=== PATIENT | female | born 1980 | race Caucasian/White ===

== ENCOUNTER → 2019-03-04 | Outpatient (CLI) | payer BC ==
[2019-03-04 13:28] LABS: Basophils # (A) 0.1 k/uL (0-0.2); Basophils % (A) 1 %; Eosinophils # (A) 0.2 k/uL (0-0.7); Eosinophils % (A) 2 %; HCT 43.7 % (34.0-46.0); HGB 14.6 gm/dL (11.4-16.0); Lymphocytes # (A) 3.9 k/uL (1.0-4.8); Lymphocytes % (A) 35 %; MCH 31.4 pg (25.0-35.0); MCHC 33.4 g/dL (31.0-37.0); MCV 94.1 fL (80.0-100.0); Monocytes # (A) 0.5 k/uL (0-1.0); Monocytes % (A) 5 %; Neutrophils # (A) 6.2 k/uL (1.3-7.7); Neutrophils % (A) 56 %; Platelet Count 243 k/uL (150-450); RBC 4.64 m/uL (3.80-5.40); RDW 12.2 % (11.5-15.5)
== END | disposition home or self-care (01) ==
LOC: LABPAT 12:38
PROVIDERS: ATTEND Obstetrics & Gynecology
DX: Z01.812 Encounter for preprocedural laboratory examination (principal)
CPT/HCPCS: 36415; 85025

== ENCOUNTER → 2019-03-28 | Outpatient (CLI) | payer BC | END | disposition home or self-care (01) | LOC: RADMAMWWP 15:06 | PROVIDERS: ATTEND Obstetrics & Gynecology | DX: Z53.9 Procedure and treatment not carried out, unspecified reason (principal) ==

== ENCOUNTER 2019-04-02 07:29 | Day surgery (SDC) | payer BC ==
[2019-03-20 11:55] VITALS: BMI 40.7
--- NOTE | 2019-04-02 06:43 | P.HPOB ---
History of Present Illness H&P Date: 04/01/19 Chief Complaint: Menorrhagia with irregular cycle, family planning This is a 38-year-old female 1 para 1 who presents for dilation and curettage with hysteroscopy and NovaSure endometrial ablation for menorrhagia with irregular cycle and laparoscopic bilateral tubal ligation via fulguration and IUD removal for family planning. She has also consented to possible drainage of ovarian cysts. Her recent pelvic ultrasound showed a uterus measuring 9.4 x 5.7 x 4.4 cm[address] in [address]. The right ovary did have a paraovarian cyst measuring 3.8 x 3.4 cm. The left ovary had a cyst measuring 3.6 x 3.5 cm. Her menses occur every 26-29 days and last at least 6-8 days but has lasted up to 14 days in the past. Obstetrical history: . History of 1 delivery. Gynecologic history: No history of sexual transmitted diseases. Social history: She is . She has been with the same partner since 2009. 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 Review of Systems Constitutional: Reports weight loss Eyes: denies blurred vision, denies pain Ears, nose, mouth and throat: Denies headache, Denies sore throat Cardiovascular: Denies chest pain, Denies shortness of breath Respiratory: Denies cough Gastrointestinal: Denies abdominal pain, Denies diarrhea, Denies nausea, Denies vomiting Genitourinary: Reports dyspareunia, Reports menorrhagia Musculoskeletal: Reports low back pain Neurological: Reports numbness (R. foot) Psychiatric: Reports irritability Past Medical History Past Medical History: Diabetes Mellitus, Neurologic Disorder (Neuropathy, R. matty t), Pneumonia Additional Past Medical History / Comment(s): STATES NO LONGER DIABETIC, MENORRHAGIA., STATES SURGERY RESCHEDULED FROM 03/25/19 DUE TO PNEUMONIA - CONTINUES ON CEFTIN, STATES SHE RECEIVED ROCEPHIN AND STEROID INJECTION ON 03/25/19. History of Any Multi-Drug Resistant Organisms: None Reported Past Surgical History: Section, Orthopedic Surgery Additional Past Surgical History / Comment(s): Right ankle surgery. Section X1. Past Anesthesia/Blood Transfusion Reactions: No Reported Reaction Past Psychological History: No Psychological Hx Reported Smoking Status: Current every day smoker Past Alcohol Use History: None Reported Additional Past Alcohol Use History / Comment(s): Has been smoking 20 yrs, 1 1/2 PPD. Past Drug Use History: None Reported - Past Family History Brother(s) Family Medical History: Cancer Additional Family Medical History / Comment(s): Non-Hodgkins Lymphoma. Mother Family Medical History: Cancer Additional Family Medical History / Comment(s): Bladder cancer. Medications and Allergies Home Medications Medication Instructions Recorded Confirmed Type Cefuroxime Axetil [Ceftin] 500 mg PO BID 03/29/19 03/29/19 History Inhaler (Unknown Name) 1 puff INHALATION DAILY 03/29/19 History Allergies Allergy/AdvReac Type Severity Reaction Status Date / Time No Known Allergies Allergy Verified 03/29/19 11:29 Exam Osteopathic Statement: *. No significant issues noted on an osteopathic structural exam other than those noted in the History and Physical/Consult. HEENT: Within normal limits Heart: regular rate and rhythm Lungs: clear to auscultation bilaterally Abdomen: soft, non-tender Pelvic: uterus anteverted, mildly tender with no adnexal masses palpated. Mild cervical motion tenderness noted. IUD strings visible Extremites: Negative Richard's. Assessment and Plan (1) Menorrhagia with irregular cycle Status: Acute Code(s): N92.1 - EXCESSIVE AND FREQUENT MENSTRUATION WITH IRREGULAR CYCLE SNOMED Code(s): 189722303 (2) Family planning Status: Acute Code(s): Z30.09 - ENCOUNTER FOR OT GENERAL CNSL AND ADVICE ON CONTRACEPTION SNOMED Code(s): 644953866 (3) Ovarian cyst Status: Acute Code(s): N83.209 - UNSPECIFIED OVARIAN CYST, UNSPECIFIED SIDE SNOMED Code(s): 57217197 Plan: Proceed with dilation and curettage with hysteroscopy and NovaSure endometrial ablation along with removal of IUD and laparoscopic bilateral tubal ligation via fulguration with possible drainage of ovarian cysts. I have discussed the risks, benefits, and alternative therapies for the above- mentioned procedure and for both sedation/anesthesia as well as necessary blood products administration, if indicated, as they pertain to this patient. The patient has indicated her understanding and acceptance of the risks and procedures discussed.
[~2019-04-02 07:29] MED LIST: DEXAMETHASONE SOD PHOSPHATE 10 MG/ML 1 ML VIAL IV ONE; HYDROmorphone 0.5 MG/0.5 ML SYRINGE IVP PRN; LACTATED RINGERS 1,000 ML IV SCH; LIDOCAINE 1% 20 ML VIAL (10MG/ML) FOR IV START INTRADERMA PRN; ONDANSETRON 4 MG/2 ML VIAL IVP ONE; Pre Op ABX Message 1 EACH MISC MISCELLANE ONE; fentaNYL (PF) 50 MCG/ML 2 ML AMP IV PRN
[2019-04-02 07:50] VITALS: TEMP 96.8
[2019-04-02] MEDS ORDERED: HYDROmorphone (PF) 1 MG/ML ONE (08:56)
[2019-04-02] MEDS ORDERED: ROCURONIUM BROMIDE 10 MG/ML 10 ML VIAL IV ONE (08:56)
[2019-04-02] MEDS ORDERED: PROPOFOL 10 MG/ML 20 ML VIAL IV ONE (08:56)
[2019-04-02] MEDS ORDERED: SUCCINYLCHOLINE CHLORIDE VIAL 200 MG/10 ML VIAL IV ONE (08:56)
[2019-04-02] MEDS ORDERED: GLYCOPYRROLATE 0.2 MG/ML 2 ML VIAL ONE (08:56)
[2019-04-02] MEDS ORDERED: NEOSTIGMINE 1 MG/ML 10 ML VIAL ONE (08:56)
[2019-04-02] MEDS ORDERED: MIDAZOLAM 2 MG/2 ML VIAL ONE (08:56)
[2019-04-02] MEDS ORDERED: ALBUTEROL INHALER 60 PUFF/8 GM INHALER INHALATION ONE (08:56)
[2019-04-02] MEDS ORDERED: fentaNYL (PF) 50 MCG/ML 2 ML AMP ONE (08:56)
[2019-04-02] MEDS ORDERED: KETOROLAC 30 MG/ML 1 ML VIAL ONE (08:56)
[2019-04-02] MEDS ORDERED: BUPIVACAINE (PF) 0.25% 30 ML VIAL SQ ONE ×2 (09:36→09:57)
--- NOTE | 2019-04-02 10:04 | P.OP ---
Date of Procedure: 04/02/19 Preoperative Diagnosis: Menorrhagia with irregular cycle Family planning Postoperative Diagnosis: Same plus right ovarian cyst and right paratubal cyst Procedure(s) Performed: Dilation and curettage with hysteroscopy and NovaSure endometrial ablation Removal of IUD Laparoscopic bilateral tubal ligation via fulguration Drainage of right ovarian cyst and right paratubal cyst Anesthesia: JOSE Surgeon: Sadaf Spencer Estimated Blood Loss (ml): 10 Pathology: none sent Condition: stable Disposition: same day Indications for Procedure: This is a 38-year-old female 1 para 1 who presents for dilation and curettage with hysteroscopy and NovaSure endometrial ablation for menorrhagia with irregular cycle and laparoscopic bilateral tubal ligation via fulguration and IUD removal for family planning. She has also consented to possible drainage of ovarian cysts. Her recent pelvic ultrasound showed a uterus measuring 9.4 x 5.7 x 4.4 cm. IUD was in place. The right ovary did have a paraovarian cyst measuring 3.8 x 3.4 cm. The left ovary had a cyst measuring 3.6 x 3.5 cm. Her menses occur every 26-29 days and last at least 6-8 days but has lasted up to 14 days in the past. Operative Findings: Uterus is anteverted. Cervix is sounded to 3 cm and uterus is sounded to 10-1/2 cm. Upon hysteroscopy, a dyssynchronous endometrial pattern was noted. Either tubal ostia was completely visualized. A moderate amount of endometrial curettings are obtained. Uterus appears normal contour. There is a small simple right ovarian cyst approximately 3 cm. There is also a right paratubal cyst approximately 3-4 cm on the distal and. Left tube and ovary appeared normal with just very small follicle cysts. No evidence of endometriosis is noted. No adhesions were noted. Description of Procedure: The patient is taken to the operating room. She is placed in the dorsal lithotomy position after general anesthesia was given. She is prepped and draped in the normal sterile fashion. Bladder is drained with a catheter and then removed. Pelvic exam is performed under anesthesia. Uterus is found to be anteverted with no adnexal masses. She is placed in slight Trendelenburg position. A right angle retractor is used to visualize the cervix. The anterior lip of the cervix is grasped with a single-tooth tenaculum. IUD strings are visualized. IUD is grasped with a ring forcep and IUD is easily removed and discarded. Cervix is sounded to 3 cm. Uterus is sounded to 10.5 cm. Cervix is gently dilated with Peterson dilators until a hysteroscope could be passed. Hysteroscopy is performed using normal saline. The above noted findings are noted. Next a polyp forceps is introduced. A moderate amount of tissue was obtained. Next medium-sized size sharp curette was placed. A moderate amount of endometrial curettings were obtained. Next NovaSure array was inserted into the endometrial cavity. Length was set at 6.5 cm and width was determined to be 3.3 cm. Next cavity assessment was completed and passed on the first try. Next NovaSure array was fired at 118 W for 56 seconds. Next the array was removed, inspected and then discarded. Next the hysteroscope was reinserted. Uniform charring was noted. Pictures were taken. Hysteroscope was removed. Next a kroner uterine manipulator is inserted through the cervix and the balloon is inflated. Single-tooth tenaculum was removed from the anterior lip of the cervix. Minimal bleeding was noted. All other instruments removed from the vagina. Attention is then turned to the abdomen. Gloves are changed. A towel clip was placed above the umbilicus for retraction. A 5 mm disposable bladeless trocar was then inserted into the peritoneal cavity under direct visualization. Once inside, pneumoperitoneum was achieved with CO2 gas. The insert was removed and the camera was placed. Intraperitoneal placement was confirmed. No bleeding was noted. Next the patient was placed in Trendelenburg position. A small stab incision was made suprapubically and a 5 mm disposable bladeless trocar was inserted into the peritoneal cavity under direct visualization. Once inside pelvic contents were inspected. Next a bipolar Kleppinger instrument was placed through the inferior trocar and the midportion of each tube was brought away from other structures and completely fulgurated on approximate 2-3 cm segment of each tube. Excellent hemostasis was noted. Next a aspirating needle was inserted and the right ovarian cyst is stab and drained of some clear straw- colored fluid. The cyst resolves. Next attempt to use the aspirating needle on the paratubal cyst did not work as the cyst wall was too tough. Next a J-hook was used with 35 W of cutting power to make a small hole in the paratubal cyst. The cyst did drain clear fluid also. Excellent hemostasis was noted. Pictures were taken. Pneumoperitoneum was released after the inferior trocar was removed under direct visualization. The upper trocar was then removed. The skin incisions were then closed with 4-0 Vicryl suture in a subcuticular fashion. Next the kroner uterine manipulator was removed. Minimal bleeding was noted. All sponge and needle counts are correct. The patient is then taken to recovery room in stable condition.
[2019-04-02] MEDS ORDERED: LACTATED RINGERS 1,000 ML IV ONE ×2 (10:45)
[2019-04-02 11:38] VITALS: RESP 18
[2019-04-02 11:55] VITALS: BP 132/65; PULSE 67
== END 2019-04-02 12:07 | disposition home or self-care (01) ==
LOC: OR 07:29
PROVIDERS: ATTEND Obstetrics & Gynecology
DX: N92.1 Excessive and frequent menstruation with irregular cycle (principal); Z30.2 Encounter for sterilization; N83.291 Other ovarian cyst, right side; N83.02 Follicular cyst of left ovary; N83.8 Other noninflammatory disorders of ovary, fallopian tube and broad ligament; N85.4 Malposition of uterus; G62.9 Polyneuropathy, unspecified; F17.210 Nicotine dependence, cigarettes, uncomplicated; E66.01 Morbid (severe) obesity due to excess calories; Z68.41 Body mass index [BMI] 40.0-44.9, adult; Z87.01 Personal history of pneumonia (recurrent); Z86.39 Personal history of other endocrine, nutritional and metabolic disease; Z98.890 Other specified postprocedural states; Z80.7 Family history of other malignant neoplasms of lymphoid, hematopoietic and related tissues; Z80.52 Family history of malignant neoplasm of bladder
CPT/HCPCS: 58563; 58301; 58670; 49322; 81025; 88305; J2250; J0330; J1100; J2710; J2405; J3010; J1885; J1170; J2704

== ENCOUNTER → 2019-07-01 | Outpatient (CLI) | payer BC ==
--- NOTE | 2019-07-01 08:10 | MM ---
Reason for exam: screening (asymptomatic). Baseline mammogram. History: Family history of breast cancer in paternal grandmother at age 60. Physical Findings: Nurse did not find any significant physical abnormalities on exam. MG Screening Mammo w CAD Bilateral CC and MLO view(s) were taken. The breast tissue is heterogeneously dense. This may lower the sensitivity of mammography. There is no discrete abnormality. These results were verbally communicated with the patient and result sheet given to the patient on 07/01/19. ASSESSMENT: Negative, BI-RAD 1 RECOMMENDATION: Routine screening mammogram of both breasts at age 41.
== END | disposition home or self-care (01) ==
LOC: RADMAMWWP 07:01
PROVIDERS: ATTEND Obstetrics & Gynecology
DX: Z12.31 Encounter for screening mammogram for malignant neoplasm of breast (principal)
CPT/HCPCS: 77067

== ENCOUNTER → 2022-03-17 | Outpatient (CLI) | payer BC ==
--- NOTE | 2022-03-17 17:01 | CT ---
EXAMINATION TYPE: CT abdomen pelvis w con DATE OF EXAM: 03/17/2022 COMPARISON: None HISTORY: Left lower quadrant pain CT DLP: 2118.3 mGycm Automated exposure control for dose reduction was used. CONTRAST: Performed with IV Contrast, patient injected with 100cc mL of Isovue 300. Images obtained from the diaphragm to the floor the pelvis with IV contrast. The lung bases are clear. No pleural effusion. Heart size is normal. No pericardial effusion. Liver s pleen and stomach pancreas and gallbladder appear intact. The bile ducts are not dilated. There is no adrenal mass. Kidneys show satisfactory contrast opacification. No hydronephrosis. Append ix is medial and appears normal. Bladder distends smoothly. Uterus is anteverted. There is 6.5 cm cys t on the right ovary. There are multiple sigmoid diverticula. No free fluid in the pelvis. No inguina l hernia. The uterus is anteverted. There is mild enlargement of the endometrial cavity that measures 2.3 cm. The lumbar vertebra. Intact disc spaces are fairly normal. Posterior elements are intact. No compress ion fracture. The bony pelvis is intact. The hip joints are intact. IMPRESSION: Large right ovarian cyst. Mild enlargement of the endometrium. Ultrasound would be helpful for furthe r evaluation. Sigmoid diverticulosis without diverticulitis. Normal appendix.
== END | disposition home or self-care (01) ==
LOC: RADCTMAIN 14:36
PROVIDERS: ATTEND Family Medicine
DX: R10.32 Left lower quadrant pain (principal)
CPT/HCPCS: 74177; Q9967

== ENCOUNTER 2022-03-24 17:26 | Emergency (ER) | payer BC ==
[2022-03-24 17:59] VITALS: TEMP 97.8
[2022-03-24] MEDS ORDERED: ONDANSETRON 4 MG/2 ML VIAL IVP STA (19:19)
[2022-03-24] MEDS ORDERED: SODIUM CHLORIDE 0.9% 1,000 ML IV STA ×2 (19:19→21:30)
[2022-03-24] MEDS ORDERED: HYDROmorphone 1 MG/ML 1 ML SYRINGE IVP STA (19:19)
[2022-03-24 20:33] LABS: Amorphous Sediment,Urine Rare /hpf; Appearance,Urine Cloudy (Clear); Bacteria,Urine Rare /hpf; Bilirubin,Urine Negative (Negative); Blood,Urine Negative (Negative); Color,Urine Yellow; Glucose,Urine (UA) 3+ (Negative); Ketones,Urine Negative (Negative); Leukocyte Esterase,Urine Negative (Negative); Mucus,Urine Rare /hpf; Nitrite,Urine Negative (Negative); PH, Urine 5.5 (5.0-8.0); Protein,Urine Negative (Negative); RBC,Urine <1 /hpf (0-5); Specific Gravity,Urine 1.022 (1.001-1.035); Squamous Epithelial Cell,Urine 13 /hpf (0-4); Urobilinogen,Urine <2.0 mg/dL (<2.0); WBC,Urine 4 /hpf (0-5)
[2022-03-24] MEDS ORDERED: KETOROLAC 15 MG/ML 1 ML VIAL IVP STA (20:33)
[2022-03-24] MEDS ORDERED: HYDROmorphone 0.5 MG/0.5 ML SYRINGE IVP STA (20:33)
[2022-03-24 20:37] LABS: Basophils % (A) 0 %; Eosinophils % (A) 0 %; HCT 47.8 % (34.0-46.0); HGB 16.7 gm/dL (11.4-16.0); Lymphocytes # (A) 2.1 k/uL (1.0-4.8); Lymphocytes % (A) 16 %; MCH 33.4 pg (25.0-35.0); MCHC 34.9 g/dL (31.0-37.0); MCV 95.5 fL (80.0-100.0); Monocytes # (A) 0.5 k/uL (0-1.0); Monocytes % (A) 4 %; Neutrophils # (A) 10.3 k/uL (1.3-7.7); Neutrophils % (A) 79 %; Platelet Count 324 k/uL (150-450); RDW 11.8 % (11.5-15.5); WBC 13.1 k/uL (3.8-10.6)
--- NOTE | 2022-03-24 20:40 | ED ---
General Adult HPI - General Chief complaint: Abdominal Pain Stated complaint: Lower ABD Pain Time Seen by Provider: 03/24/22 18:24 Source: patient, RN notes reviewed Mode of arrival: ambulatory Limitations: no limitations - History of Present Illness Initial comments: This is a 41-year-old female who presents to the emergency Department with complaints of left lower quadrant abdominal pain that radiates to the groin and left flank. Patient states this pain has been ongoing for the past 6-1/2 weeks. States she has been on antibiotics for suspicion of diverticulitis. States she has been prescribed a steroid and anti-inflammatory medications with no improvement. Patient is tearful and anxious. States she had an outpatient CT done 2 days ago and is aware of an ovarian cyst, but is certain this pain is unrelated. States she is feeling nauseous and frustrated with the persistent pain and lack of relief. Reports having been seen by her GI doctor yesterday who has scheduled her for a colonoscopy next week. Is also scheduled to see her OB-Golf Technician next week. PCP called her in an antibiotic today. Denies fever, chills, headache, dizziness, chest pain, shortness of breath, vomiting, bowel or bladder changes, or change in menstruation. - Related Data Home Medications Medication Instructions Recorded Confirmed Acetaminophen [Tylenol Extra 1,000 mg PO Q6H PRN 03/24/22 03/24/22 Strength] Dicyclomine [Bentyl] 10 mg PO TID 03/24/22 03/24/22 Ibuprofen [Motrin Ib] 800 mg PO Q6H PRN 03/24/22 03/24/22 predniSONE See Taper PO DIRECTED 03/24/22 03/24/22 Allergies Allergy/AdvReac Type Severity Reaction Status Date / Time No Known Allergies Allergy Verified 03/24/22 19:18 Review of Systems ROS Statement: Those systems with pertinent positive or pertinent negative responses have been documented in the HPI. ROS Other: All systems not noted in ROS Statement are negative. Past Medical History Past Medical History: Diabetes Mellitus Additional Past Medical History / Comment(s): STATES NO LONGER DIABETIC, MENORRHAGIA., STATES SURGERY RESCHEDULED FROM 03/25/19 DUE TO PNEUMONIA - CONTINUES ON CEFTIN, STATES SHE RECEIVED ROCEPHIN AND STEROID INJECTION ON 03/25/19. History of Any Multi-Drug Resistant Organisms: None Reported Past Surgical History: No Surgical Hx Reported Additional Past Surgical History / Comment(s): Right ankle surgery. Section X1. Past Anesthesia/Blood Transfusion Reactions: No Reported Reaction Past Psychological History: No Psychological Hx Reported Smoking Status: Never smoker Past Alcohol Use History: None Reported Past Drug Use History: None Reported - Past Family History Brother(s) Family Medical History: Cancer Additional Family Medical History / Comment(s): Non-Hodgkins Lymphoma. Mother Family Medical History: Cancer Additional Family Medical History / Comment(s): Bladder cancer. General Exam - General Exam Comments Initial Comments: Upon exam, patient is restless and unable to sit in bed for physical exam due to her level of discomfort. Limitations: no limitations General appearance: alert, in distress (Well-developed, well-nourished female is tearful and anxious upon exam. Initial temperature 97.8, pulse 93, respirations 20, blood pressure 205/109, pulse ox 99% on room air.) Eye exam: Present: normal appearance, PERRL, EOMI. Absent: scleral icterus, conjunctival injection, periorbital swelling ENT exam: Present: normal oropharynx, mucous membranes moist Respiratory exam: Present: normal lung sounds bilaterally. Absent: respiratory distress, wheezes, rales, rhonchi, stridor Cardiovascular Exam: Present: regular rate, normal rhythm, normal heart sounds. Absent: systolic murmur, diastolic murmur, rubs, gallop, clicks GI/Abdominal exam: Present: soft, guarding (Guarding of the left lower quadrant; pain is localized primarily left lower quadrant near the left groin but extends to the left flank.), normal bowel sounds. Absent: distended, tenderness, rebound, rigid Extremities exam: Present: normal inspection, full ROM, normal capillary refill. Absent: tenderness, pedal edema, joint swelling, calf tenderness Back exam: Absent: CVA tenderness (R), CVA tenderness (L) Neurological exam: Present: alert, oriented X3, CN II-XII intact, normal gait Psychiatric exam: Present: anxious Skin exam: Present: warm, dry, intact, normal color. Absent: rash Course Vital Signs 03/24/22 03/24/22 17:56 22:00 Temperature 97.8 F Pulse Rate 93 98 Respiratory 20 18 Rate Blood Pressure 205/109 158/92 O2 Sat by Pulse 99 97 Oximetry - Reevaluation(s) Reevaluation #1: 03/24/22 20:15 Upon reassessment, patient is reclined in bed and appears significantly more comfortable. States pain is ongoing but improved. Reports nausea has resolved. Discussed outpatient CT results; patient is agreeable to ultrasound. Additional pain medication will be ordered. 03/24/22 22:18 Patient was unable to tolerate UTS well due to pain, though is resting much more comfortably at this time. Discussed discharge home with follow-up care as scheduled. She is encouraged obtained antibiotic as prescribed by her PCP. Will be prescribed a limited amount of pain medicine. Medical Decision Making - Medical Decision Making This is a 41-year-old female with a 6 week history of left lower quadrant abdominal pain who presents to the emergency department for evaluation of ongoing discomfort. Upon exam, patient is restless and unable to achieve position of comfort. Pain is primarily localized to the left lower quadrant, but does extend to the groin and left flank. Recent CT showed diverticulosis without diverticulitis. A large right ovarian cyst and mildly enlarged endometrium were noted as well. Patient was given IV fluids, Zofran, Dilaudid, and Toradol with improvement. Laboratory studies do show mild leukocytosis (WBC 13.1), glucose 225, and lactic 2.9. Patient has a history of diabetes but is not currently on any medications. She is encouraged to discuss this with her PCP. Ultrasound was obtained and was negative, though ovaries were not visualized due to patient's level of discomfort. She is scheduled to see her plant guide this week regarding ovarian cysts. Patient will be discharged home to follow-up as scheduled. She is frustrated with the lack of findings and her ongoing pain. Encouraged to obtain antibiotic that was prescribed to her. She is given a limited number of [place] for pain. Return parameters were discussed in detail. Patient verbalizes understanding. Attending: Khloe. - Lab Data Result diagrams: 03/24/22 18:29 03/24/22 18:29 Lab Results 03/24/22 03/24/22 03/24/22 Range/Units 18:29 18:29 18:29 WBC 13.1 H (3.8-10.6) k/uL RBC 5.00 (3.80-5.40) m/uL Hgb 16.7 H (11.4-16.0) gm/dL Hct 47.8 H (34.0-46.0) % MCV 95.5 (80.0-100.0) fL MCH 33.4 (25.0-35.0) pg MCHC 34.9 (31.0-37.0) g/dL RDW 11.8 (11.5-15.5) % Plt Count 324 (150-450) k/uL MPV 8.0 Neutrophils % 79 % Lymphocytes % 16 % Monocytes % 4 % Eosinophils % 0 % Basophils % 0 % Neutrophils # 10.3 H (1.3-7.7) k/uL Lymphocytes # 2.1 (1.0-4.8) k/uL Monocytes # 0.5 (0-1.0) k/uL Eosinophils # 0.0 (0-0.7) k/uL Basophils # 0.0 (0-0.2) k/uL Sodium 136 L (137-145) mmol/L Potassium 4.9 (3.5-5.1) mmol/L Chloride 99 (98-107) mmol/L Carbon Dioxide 25 (22-30) mmol/L Anion Gap 12 mmol/L BUN 18 H (7-17) mg/dL Creatinine 0.48 L (0.52-1.04) mg/dL Est GFR (CKD-EPI)AfAm >90 (>60 ml/min/1.73 sqM) Est GFR (CKD-EPI)NonAf >90 (>60 ml/min/1.73 sqM) Glucose 225 H (74-99) mg/dL Lactic Ac Sepsis Rflx Plasma Lactic Acid Rory 2.9 H* (0.7-2.0) mmol/L Calcium 10.1 (8.4-10.2) mg/dL Total Bilirubin 0.3 (0.2-1.3) mg/dL AST 23 (14-36) U/L ALT 23 (4-34) U/L Alkaline Phosphatase 72 (38-126) U/L Total Protein 8.3 H (6.3-8.2) g/dL Albumin 4.9 (3.5-5.0) g/dL Lipase 51 (23-300) U/L Urine Color Urine Appearance (Clear) Urine pH (5.0-8.0) Ur Specific [place] (1.001-1.035) Urine Protein (Negative) Urine Glucose (UA) (Negative) Urine Ketones (Negative) Urine Blood (Negative) Urine Nitrite (Negative) Urine Bilirubin (Negative) Urine Urobilinogen (<2.0) mg/dL Ur Leukocyte Esterase (Negative) Urine RBC (0-5) /hpf Urine WBC (0-5) /hpf Ur Squamous Epith Cells (0-4) /hpf Amorphous Sediment (None) /hpf Urine Bacteria (None) /hpf Urine Mucus (None) /hpf Urine HCG, Qual (Not Detectd) 03/24/22 03/24/22 03/24/22 Range/Units 19:56 19:56 20:52 WBC (3.8-10.6) k/uL RBC (3.80-5.40) m/uL Hgb (11.4-16.0) gm/dL Hct (34.0-46.0) % MCV (80.0-100.0) fL MCH (25.0-35.0) pg MCHC (31.0-37.0) g/dL RDW (11.5-15.5) % Plt Count (150-450) k/uL MPV Neutrophils % % Lymphocytes % % Monocytes % % Eosinophils % % Basophils % % Neutrophils # (1.3-7.7) k/uL Lymphocytes # (1.0-4.8) k/uL Monocytes # (0-1.0) k/uL Eosinophils # (0-0.7) k/uL Basophils # (0-0.2) k/uL Sodium (137-145) mmol/L Potassium (3.5-5.1) mmol/L Chloride (98-107) mmol/L Carbon Dioxide (22-30) mmol/L Anion Gap mmol/L BUN (7-17) mg/dL Creatinine (0.52-1.04) mg/dL Est GFR (CKD-EPI)AfAm (>60 ml/min/1.73 sqM) Est GFR (CKD-EPI)NonAf (>60 ml/min/1.73 sqM) Glucose (74-99) mg/dL Lactic Ac Sepsis Rflx Y Plasma Lactic Acid Rory (0.7-2.0) mmol/L Calcium (8.4-10.2) mg/dL Total Bilirubin (0.2-1.3) mg/dL AST (14-36) U/L ALT (4-34) U/L Alkaline Phosphatase (38-126) U/L Total Protein (6.3-8.2) g/dL Albumin (3.5-5.0) g/dL Lipase (23-300) U/L Urine Color Yellow Urine Appearance Cloudy H (Clear) Urine pH 5.5 (5.0-8.0) Ur Specific [place] 1.022 (1.001-1.035) Urine Protein Negative (Negative) Urine Glucose (UA) 3+ H (Negative) Urine Ketones Negative (Negative) Urine Blood Negative (Negative) Urine Nitrite Negative (Negative) Urine Bilirubin Negative (Negative) Urine Urobilinogen <2.0 (<2.0) mg/dL Ur Leukocyte Esterase Negative (Negative) Urine RBC <1 (0-5) /hpf Urine WBC 4 (0-5) /hpf Ur Squamous Epith Cells 13 H (0-4) /hpf Amorphous Sediment Rare H (None) /hpf Urine Bacteria Rare H (None) /hpf Urine Mucus Rare H (None) /hpf Urine HCG, Qual Not Detected (Not Detectd) - Radiology Data Radiology results: report reviewed, image reviewed Transvaginal ultrasound is obtained. Report was reviewed in its entirety. Impression per Dr. Corey is negative examination. Disposition Clinical Impression: Abdominal pain Disposition: HOME SELF-CARE Condition: Stable Instructions (If sedation given, give patient instructions): Abdominal Pain (ED) Additional Instructions: Take pain medication if needed. Increase fluids. Track your pain quality and frequency to discuss at your appointments. Follow-up as scheduled. Return to the emergency department with any new, worsening, or concerning symptoms. Is patient prescribed a controlled substance at d/c from ED?: Yes When asked, does pt state using other controlled substances?: No If prescribed controlled substance>3 days was MAPS reviewed?: Prescribed <3 Days If opioid is for acute pain is fill amount 7 days or less?: Yes If Rx opioid, was Start Talking consent form obtained?: No Referrals: None,Stated [Primary Care Provider] - 1-2 days
[2022-03-24 20:42] LABS: ALT 23 U/L (4-34); AST 23 U/L (14-36); African American GFR (CKD) >90 (>60 ml/min/1.73 sqM); Albumin 4.9 g/dL (3.5-5.0); Alkaline Phosphatase 72 U/L (38-126); Anion Gap 12 mmol/L; Blood Urea Nitrogen 18 mg/dL (7-17); Calcium 10.1 mg/dL (8.4-10.2); Carbon Dioxide 25 mmol/L (22-30); Chloride 99 mmol/L (98-107); Glucose 225 mg/dL (74-99); Lipase 51 U/L (23-300); Non-African American GFR(CKD) >90 (>60 ml/min/1.73 sqM); Potassium 4.9 mmol/L (3.5-5.1); Sodium 136 mmol/L (137-145); Total Bilirubin 0.3 mg/dL (0.2-1.3); Total Protein 8.3 g/dL (6.3-8.2)
--- NOTE | 2022-03-24 21:44 | US ---
EXAMINATION TYPE: US transvaginal DATE OF EXAM: 03/24/2022 COMPARISON: CT: 03/17/22 CLINICAL HISTORY: 41 F with LLQ/pelvic pain. LLQ pain x 6 weeks, worsened last week TECHNIQUE: . Transvaginal sonographic images of the pelvis were acquired. Limited due to pt being in pain and squriming Date of LMP: 3 years ago EXAM MEASUREMENTS: Uterus: 8.2 x 5.2 x 4.7 cm Endometrial Stripe: 1.9 cm Right Ovary: Not vis Left Ovary: Not vis 1. Uterus: Anteverted wnl 2. Endometrium: enlarged 3. Right Ovary: Not vis 4. Left Ovary: Not vis 5. Bilateral Adnexa: bowel, appear wnl 6. Posterior cul-de-sac: wnl IMPRESSION: Negative examination.
[2022-03-24 22:11] VITALS: BP 158/92; PULSE 98; RESP 18
== END 2022-03-25 | disposition home or self-care (01) ==
LOC: EC 17:26
DX: R10.32 Left lower quadrant pain (principal); E11.9 Type 2 diabetes mellitus without complications; Z79.899 Other long term (current) drug therapy
CPT/HCPCS: 36415; 80053; 83605; 83690; 85025; 81001; 81025; 76830; 99284; 96374; 96376; 96375 ×2; 96361 ×2; J2405; J1170 ×2; J1885

== ENCOUNTER → 2022-03-31 | Outpatient (CLI) | payer BC ==
--- NOTE | 2022-03-31 14:13 | US ---
EXAMINATION TYPE: US venous doppler duplex LE LT DATE OF EXAM: 03/31/2022 2:03 PM COMPARISON: NONE CLINICAL HISTORY: M79.605 PAIN IN LEFT LEG. Pain in left leg. No hx of DVT. Patient does not take blo od thinners. SIDE PERFORMED: Left TECHNIQUE: The lower extremity deep venous system is examined utilizing real time linear array sonog holland with graded compression, doppler sonography and color-flow sonography. VESSELS IMAGED: Common Femoral Vein Deep Femoral Vein Greater Saphenous Vein * Femoral Vein Popliteal Vein Small Saphenous Vein * Proximal Calf Veins (* superficial vessels) Left Leg: No evidence of DVT in veins imaged at this time. IMPRESSION: No ultrasound evidence for acute DVT in the left lower extremity.
== END | disposition home or self-care (01) ==
LOC: RADUSWWP 12:58
PROVIDERS: ATTEND Family Medicine
DX: M79.605 Pain in left leg (principal)

== ENCOUNTER 2022-04-12 09:38 | Day surgery (SDC) | payer BC ==
[2022-04-07 12:59] VITALS: BMI 41.1
--- NOTE | 2022-04-11 18:07 | P.HPOB ---
History of Present Illness H&P Date: 04/11/22 Chief Complaint: Pelvic pain, hematometria, post-ablative syndrome This is a 41-year-old female 1 para 1 who presents for total laparoscopic hysterectomy with bilateral salpingectomy using da [place] and diagnostic cystoscopy possible total abdominal hysterectomy with bilateral submental oophorectomy due to severe pelvic pain that is stabbing, crampy, and colicky. She states this pain has been going on currently for the last 2 months. She did have similar pain back in September and was given antibiotics for presumed diverticulitis and the pain did resolve after taking Augmentin and metronidazole. She states her current episode of pain started about 2 months ago and she went to her family doctor. She was placed again on Augmentin and Flagyl. Her pain went away for 4-5 days but came back. She did have a computed tomography scan performed on 03/17/2022 that showed a questionable 6.5 cm cyst on the right ovary with multiple sigmoid diverticula and no free fluid in the pelvis. There was also mild enlargement of the endometrial cavity up to 2.3 cm. Pelvic ultrasound was performed on 03/28/2022 that showed a fluid collection within the uterine cavity measuring up to 4.1 x 3.8 cm, possible hematoma. Her right ovary was normal size at 1.8 cm. Her left ovary measured 2.9 cm. There was a cystic avascular fluid collection in the right adnexal area superior to the uterine fundus measuring 3.1 x 3.0 cm, possible hydrosalpinx. She recently had a colonoscopy on 03/29/2022 that just showed some ambulation and polyps per patient. The patient does have a history of an endometrial ablation in March 2019. Obstetrical history: . History of 1 delivery. Gynecologic history: No history of sexually transmitted diseases. She has had a tubal ligation. Social history: She is . She currently works full-time at [employer]. Review of Systems Constitutional: Denies chills, Denies fever Eyes: denies blurred vision, denies pain Ears, nose, mouth and throat: Denies headache, Denies sore throat Cardiovascular: Denies chest pain, Denies shortness of breath Respiratory: Denies cough Gastrointestinal: Reports abdominal pain Genitourinary: Reports dysmenorrhea (No actual period, but monthly cramping), Reports pelvic pain, Denies abnormal vaginal bleeding Musculoskeletal: Reports low back pain, Denies myalgias Integumentary: Denies pruritus, Denies rash Neurological: Denies numbness, Denies weakness Psychiatric: Denies anxiety, Denies depression Past Medical History Past Medical History: Diabetes Mellitus, Hyperlipidemia Additional Past Medical History / Comment(s): DIET CONTROL DIABETES, ABD PAIN History of Any Multi-Drug Resistant Organisms: None Reported Past Surgical History: Orthopedic Surgery, Tubal Ligation, Uterine Ablation Additional Past Surgical History / Comment(s): Right ankle surgery. Section X1. Past Anesthesia/Blood Transfusion Reactions: No Reported Reaction Past Psychological History: No Psychological Hx Reported Smoking Status: Current every day smoker Past Alcohol Use History: Occasional Past Drug Use History: None Reported - Past Family History Brother(s) Family Medical History: Cancer Additional Family Medical History / Comment(s): Non-Hodgkins Lymphoma. Mother Family Medical History: Cancer Additional Family Medical History / Comment(s): Bladder cancer. Medications and Allergies Home Medications Medication Instructions Recorded Confirmed Type Acetaminophen [Tylenol Extra 1,000 mg PO Q6H PRN 03/24/22 04/07/22 History Strength] Dicyclomine [Bentyl] 10 mg PO TID 03/24/22 04/07/22 History Ibuprofen [Motrin Ib] 800 mg PO Q6H PRN 03/24/22 04/07/22 History HYDROcodone/APAP 10-325MG [Eleanor 1 tab PO Q6HR PRN 04/07/22 04/07/22 History 10-325] Allergies Allergy/AdvReac Type Severity Reaction Status Date / Time No Known Allergies Allergy Verified 04/07/22 12:49 Exam Osteopathic Statement: *. No significant issues noted on an osteopathic structural exam other than those noted in the History and Physical/Consult. HEENT: Within normal limits Heart: Regular rate and rhythm Lungs: Clear to auscultation bilaterally Abdomen: Tenderness in the lower abdomen bilaterally Pelvic exam: Patient was in too much pain to allow exam, however previously exam showed a anteverted uterus that was tender with mild cervical motion tenderness and no adnexal masses palpated. 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 I have discussed the risks, benefits, and alternative therapies for the above- mentioned procedure and for both sedation/anesthesia as well as necessary blood products administration, if indicated, as they pertain to this patient. The patient has indicated her understanding and acceptance of the risks and procedures discussed.
[~2022-04-12 09:38] MED LIST changes: -DEXAMETHASONE SOD PHOSPHATE 10 MG/ML 1 ML VIAL IV ONE; +DEXAMETHASONE SOD PHOSPHATE 4 MG/ML 1 ML VIAL IV ONE; -LIDOCAINE 1% 20 ML VIAL (10MG/ML) FOR IV START INTRADERMA PRN; -Pre Op ABX Message 1 EACH MISC MISCELLANE ONE; -fentaNYL (PF) 50 MCG/ML 2 ML AMP IV PRN
[2022-04-12 11:32] LABS: Glucose,Whole Blood 98 mg/dL (70-110)
[2022-04-12] MEDS ORDERED: MIDAZOLAM 2 MG/2 ML VIAL IVP ONE (11:39)
[2022-04-12] MEDS ORDERED: NALBUPHINE 10 MG/ML (1 ML AMP) IV PRN (12:11)
[2022-04-12] MEDS ORDERED: HYDROmorphone 0.5 MG/0.5 ML SYRINGE IVP PRN (12:11)
[2022-04-12] MEDS ORDERED: NALOXONE 0.4 MG/ML 1 ML VIAL IV PRN (12:11)
--- NOTE | 2022-04-12 12:15 | P.ANPRN ---
Procedure Note - Anesthesia - Epidural/Spinal Spinal Time Out Performed: Yes Date of Procedure: 04/12/22 Procedure Start Time: 11:39 Procedure Stop Time: 11:52 Location of Patient: PreOp Indication: Acute Post-Operative Pain, Requested by Surgeon Sedation Type: Sedate with meaningful contact maintained Preparation: Sterile Dressing Number of Attempts: 1 (bupivacaine 0.75% 5 mg, fentanyl 25 mcg, duramorph 0.4 mg) Position: Sitting Catheter: None Needle Guage: 25 Blood Aspirated: No Pain Paresthesia on Injection Noted: No Events: Uneventful and Well Tolerated
[2022-04-12] MEDS ORDERED: PROPOFOL 10 MG/ML 20 ML VIAL IV ONE (12:21)
[2022-04-12] MEDS ORDERED: NEOSTIGMINE 1 MG/ML 10 ML VIAL ONE (12:21)
[2022-04-12] MEDS ORDERED: LIDOCAINE 2% INJ 20 MG/ML (2 ML VIAL) ONE (12:21)
[2022-04-12] MEDS ORDERED: ACETAMINOPHEN IV (For NPO) 1,000 MG/100 ML VIAL ONE (12:21)
[2022-04-12] MEDS ORDERED: fentaNYL (PF) 50 MCG/ML 2 ML AMP ONE (12:21)
[2022-04-12] MEDS ORDERED: LIDOCAINE 4% LTA KIT (4 ML) TOPICAL ONE (12:21)
[2022-04-12] MEDS ORDERED: GLYCOPYRROLATE 0.2 MG/ML 2 ML VIAL ONE (12:21)
[2022-04-12] MEDS ORDERED: ROCURONIUM 10 MG/ML (5 ML VIAL) IV ONE (12:21)
[2022-04-12] MEDS ORDERED: ALBUTEROL INHALER 60 PUFF/8 GM INHALER (MHU) INHALATION ONE (12:21)
[2022-04-12] MEDS ORDERED: KETAMINE 10 MG/ML 20 ML VIAL ONE (12:21)
[2022-04-12] MEDS ORDERED: SUCCINYLCHOLINE CHLORIDE 200 MG/10 ML VIAL IV ONE (12:21)
[2022-04-12] MEDS ORDERED: MORPHINE SULFATE (PF) 0.3 MG/0.3 ML SYR ONE (12:21)
[2022-04-12] MEDS ORDERED: PHENYLEPHRINE-0.9% NACL SYG 1,000 MCG/10 ML SYRINGE ONE (12:21)
[2022-04-12] MEDS ORDERED: BUPIVACAINE (PF) 0.25% 30 ML VIAL SQ ONE (13:19)
[2022-04-12] MEDS ORDERED: LACTATED RINGERS 1,000 ML IV ONE (13:46)
--- NOTE | 2022-04-12 15:55 | P.OP ---
Date of Procedure: 04/12/22 Preoperative Diagnosis: Pelvic pain Hematometra Post endometrial ablation syndrome Postoperative Diagnosis: Pelvic pain Post-endometrial ablation syndrome Bilateral hydrosalpinx Pelvic adhesions Procedure(s) Performed: Total laparoscopic hysterectomy with bilateral salpingectomy and left oophorectomy with da [place] Diagnostic cystoscopy Anesthesia: GETA, spinal (Duramorph) Surgeon: Sadaf Spencer Hunting Guide #1: Karen Ware Estimated Blood Loss (ml): 150 Pathology: other (Uterus with cervix, bilateral fallopian tubes, left ovary) Condition: stable Disposition: floor Indications for Procedure: This is a 41-year-old female 1 para 1 who presents for total laparoscopic hysterectomy with bilateral salpingectomy using da [place] and diagnostic cystoscopy possible total abdominal hysterectomy with bilateral submental oophorectomy due to severe pelvic pain that is stabbing, crampy, and colicky. She states this pain has been going on currently for the last 2 months. She did have similar pain back in September and was given antibiotics for presumed diverticulitis and the pain did resolve after taking Augmentin and metronidazole. She states her current episode of pain started about 2 months ago and she went to her family doctor. She was placed again on Augmentin and Flagyl. Her pain went away for 4-5 days but came back. She did have a computed tomography scan performed on 03/17/2022 that showed a questionable 6.5 cm cyst on the right ovary with multiple sigmoid diverticula and no free fluid in the pelvis. There was also mild enlargement of the endometrial cavity up to 2.3 cm. Pelvic ultrasound was performed on 03/28/2022 that showed a fluid collection within the uterine cavity measuring up to 4.1 x 3.8 cm, possible hematoma. Her right ovary was normal size at 1.8 cm. Her left ovary measured 2.9 cm. There was a cystic avascular fluid collection in the right adnexal area superior to the uterine fundus measuring 3.1 x 3.0 cm, possible hydrosalpinx. She recently had a colonoscopy on 03/29/2022 that just showed some ambulation and polyps per patient. The patient does have a history of an endometrial ablation in March 2019. Operative Findings: Uterus had omental adhesions to the fundal region and the right adnexal region. The left fallopian tube was extremely dilated and attached to the uterus and left ovary. There was a hydrosalpinx on the end of the right fallopian tube. The right ovary did appear normal. The left ovary was significantly adhesed to the uterus and the left fallopian tube. Description of Procedure: The patient was taken to the operating room where she was placed in the dorsal lithotomy position. She is prepped and draped in the normal sterile fashion after general anesthesia was given. A weighted speculum was placed in the roxi ent's vagina and a right angle retractor was used to visualize the anterior lip of the cervix. The anterior lip of the cervix is grasped with a single-tooth tenaculum. Next the cervix is gently dilated until a sound could be passed. Uterus is sounded to 7-1/2 cm. The cervical width was measured at 3 cm. The cervix was gently dilated further until the Heather uterine manipulator could be passed. Stitches were placed with 0 Vicryl suture at the 3 and 9 o'clock position on the cervix for manipulation. A #6 Heather manipulator with a 3 cm cone was then inserted through the cervix. The sutures are brought through the holes on the Heather manipulator and the manipulator was fit snug against the cervix. The inner balloon was inflated. A Mckee catheter was then inserted. The uterus is anteverted and the fundus is marked on the abdomen. All other instruments are removed and gloves are changed. Next attention is turned to the abdomen. A small stab incision is made approximately 15 cm from the fundus of the uterus in the midline above the umbilicus. A 5 mm disposable bladeless trochar is then inserted under direct visualization using low flow. Once inside, the insert was removed and the camera was replaced. Pneumoperitoneum was achieved. Next a incision is made in the right side of the abdomen at approximately the level of the umbilicus approximately 8-10 cm from the umbilicus. An 8 mm da [place] trochar is placed under direct visualization. The same procedure is carried out on the left side of the abdomen in the same location as the right side. Next an incision is placed in the left upper quadrant approximately 6 cm away from the midline port and the left port and a 12 mm technical staff assistant port is placed under direct visualization. Next the 5 mm port is removed from the midline and an 8 mm da [place] port is replaced under direct visualization. CO2 gas was attached to the left sided port. Next the robot is docked from the right side of the patient. The ports are attached to the robot arms. A smoke evacuator is also attached to one of the ports. I then broke scrub and went to the robotic console. A [place] manipulator is placed through the left port and a monopolar scissors is placed through the right port. A grasper is placed through the technical staff assistant port. Next monopolar scissors with cautery are used to dissect the fine adhesions from the bowel to the anterior uterus. The adhesions are taken down from the left side of the fallopian tube to the uterus with monopolar cautery. In the process the fluid is drained off of the left fallopian tube. The mesosalpinx of the tube was then cauterized and cut up to the uterus. Since the ovary was firmly attached to the tube and the uterus, the left ovary was removed. The left infundibulopelvic ligament was cauterized with bipolar cautery and then cut with scissors. The left round ligament was also cauterized with bipolar energy and then cut. The posterior leaf of the broad ligament was then opened on the backside of the uterus to skeletonize the uterine arteries. The uterine arteries are cauterized with bipolar energy and then cut with Metzenbaum scissors. Once this side was freed, attention was turned to the right side of the pelvis. There was a paratubal cyst on the end of the right fallopian tube. This was grasped with a grasper and then taken down with monopolar and bipolar energy. This was from the tube and then placed in the lower pelvic cavity to be removed later. Next the remaining portion of the fallopian tube and this taken down with bipolar and monopolar cautery and cutting up to the uterus. The uterine ovarian ligament is cauterized with bipolar energy. The round ligament on the right side is cauterized with bipolar energy and then cut with monopolar scissors. Next the posterior leaf the broad ligament is opened with monopolar cautery. The uterine arteries were then clamped with the [place] forcep and cauterized with bipolar cautery. The anterior bladder flap was taken down with monopolar scissors. The Heather balloon was then inflated. I was able to enter into the vagina at the level of the Heather ring with the monopolar scissors. I was then able to follow the Heather ring with monopolar cutting around to the right side. The same procedure was carried out on the left side of the anterior vagina and left uterosacral ligament. Next the uterus is anteverted and the posterior wall of the vagina is cut at the level of the Heather cuff all the way around to meet the opposite side. At this point the uterus is freed. The uterus is then removed through the vagina and then a manipulator was then placed back through the vagina to keep the gas in the abdomen. Next the robot arms were changed out to a Jason manipulator on the left arm and a alejandra-suture cut on the right arm. An 0 V-lock suture is then used in a running fashion suturing the vaginal cuff from the right to the left and locking the suture through the loop on the end. Once reaching the left side of the cuff, the stitch was whipstitched back along the cuff for couple stitches and then cut. The stitch was then removed through the technical staff assistant port. Copious irrigation was carried out. Good hemostasis was noted. The right ovary did remain and appeared normal. Next the instruments are removed through the arms and the robot is undocked. The trochars are removed from the abdomen and the abdominal incisions are closed in a subcuticular fashion and then injected with quarter percent Marcaine. Steri-Strips are placed along with bandages. Next the Mckee catheter is removed and cystoscopy is performed. Both ureteral jets are noted and flow was noted through both sides. Next the cystoscopy camera is removed and the Mckee catheter is replaced. All sponge and needle counts are correct. The patient is then taken to recovery room in stable condition.
[2022-04-13] MEDS ORDERED: METOCLOPRAMIDE 5 MG/ML 2 ML VIAL IVP PRN (07:41)
[2022-04-13] MEDS ORDERED: ONDANSETRON 4 MG/2 ML VIAL IVP PRN (07:41)
[2022-04-13] MEDS ORDERED: diphenhydrAMINE 50 MG/ML 1 ML VIAL IVP PRN (07:41)
[2022-04-13] MEDS ORDERED: IBUPROFEN 600 MG TAB PO PRN (07:41)
[2022-04-13] MEDS ORDERED: HYDROcodone/APAP 10-325MG 1 EACH TAB PO PRN (07:41)
[2022-04-13] MEDS ORDERED: ZOLPIDEM 5 MG TAB PO PRN (07:41)
[2022-04-13] MEDS ORDERED: KETOROLAC 15 MG/ML 1 ML VIAL IVP PRN (07:41)
[2022-04-13] MEDS ORDERED: SIMETHICONE 80 MG CHEWABLE PO PRN (07:41)
[2022-04-13] MEDS ORDERED: SENNOSIDES-DOCUSATE SODIUM 1 EACH TAB PO SCH (07:41)
[2022-04-13 07:43] VITALS: RESP 17
[2022-04-13 07:50] VITALS: BP 109/70; PULSE 95; TEMP 98
--- NOTE | 2022-04-13 08:35 | P.DS ---
Providers Date of admission: 04/12/2022 Expected date of discharge: 04/13/22 Attending physician: Sadaf Spencer Primary care physician: Patrick Faustin - Discharge Diagnosis(es) (1) Pelvic pain Current Visit: No Status: Acute (2) Hematometra Current Visit: No Status: Acute (3) Post endometrial ablation syndrome Current Visit: No Status: Acute Hospital Course: This is a 41-year-old female 1 para 1 who underwent a total laparoscopic hysterectomy with left salpingo-oophorectomy and right salpingectomy with da [place] and diagnostic cystoscopy on 04/12/2022. Postoperatively she has done very well. Her pain has been very minimal. She is ambulating and urinating without difficulty. She denies any active bleeding. She is tolerating regular diet. Vital signs are stable. Abdomen is soft with positive bowel sounds 4. Bandages are intact on her incision sites and no active bleeding is noted. Extremities show negative Homans. Impression is status post da [place] laparoscopic hysterectomy with bilateral salpingectomy and left oophorectomy postoperative day #1. Plan is to discharge home later this morning. Will await CBC results from this morning. She will be sent home with a prescription for [place] as needed and ibuprofen. She is advised follow-up in the office in 1 week for a postoperative check. She is advised no intercourse. She is advised limited activity with no lifting. She may drive as long as she is not taking any narcotic pain medication. She may shower but no tub baths. She is advised to call the office if she has any further questions or concerns prior to her appointment time. Procedures: Total laparoscopic hysterectomy with bilateral salpingectomy and left oophorectomy with da [place] and diagnostic cystoscopy on 04/12/2022 Patient Condition at Discharge: Stable Plan - Discharge Summary Discharge Rx Participant: Yes New Discharge Prescriptions: New RX: Ibuprofen [Motrin] 600 mg PO Q6HR PRN #60 tab PRN Reason: Mild Discomfort Continue RX: Acetaminophen [Tylenol Extra Strength] 1,000 mg PO Q6H PRN PRN Reason: Fever And/ Or Pain RX: HYDROcodone/APAP 10-325MG [V[place] 10-325] 1 tab PO Q6HR PRN #12 tab PRN Reason: Pain Discontinued Gabapentin [Neurontin] 200 mg PO TID Cyclobenzaprine [Flexeril] 10 mg PO TID Dicyclomine [Bentyl] 10 mg PO TID No Action Ibuprofen [Motrin Ib] 800 mg PO Q6H PRN PRN Reason: Fever And/ Or Pain Discharge Medication List Ibuprofen [Motrin Ib] 800 mg PO Q6H PRN 03/24/22 [History] RX: Acetaminophen [Tylenol Extra Strength] 1,000 mg PO Q6H PRN 03/24/22 [History] RX: HYDROcodone/APAP 10-325MG [[place] 10-325] 1 tab PO Q6HR PRN #12 tab 04/13/22 [Rx] RX: Ibuprofen [Motrin] 600 mg PO Q6HR PRN #60 tab 04/13/22 [Rx] Follow up Appointment(s)/Referral(s): Sadaf Spencer DO [Doctor of Osteopathic Medicine] - 1 Week Activity/Diet/Wound Care/Special Instructions: Activity as tolerated. Diet as tolerated. May shower but no tub baths. No intercourse for 6-8 weeks. No heavy lifting. May drive as long as no narcotic pain medication. Discharge Disposition: HOME SELF-CARE
--- NOTE | 2022-04-13 08:38 | P.PN ---
Progress Note - Text Progress Note Date: 04/13/22 Postoperative day 1 status post laparoscopic total abdominal hysterectomy under general endotracheal anesthesia, and intrathecal morphine given for postoperative analgesia, patient doing well, there is no anesthesia related complications, Patient had no headache, vital signs stable , Assessment and plan= postop day 1 status post laparoscopic hysterectomy, doing well there is no anesthesia related complication. Patient was seen at 07:45
[2022-04-13 08:49] LABS: Basophils % (A) 0 %; Eosinophils # (A) 0.1 k/uL (0-0.7); Eosinophils % (A) 1 %; Lymphocytes # (A) 2.3 k/uL (1.0-4.8); Lymphocytes % (A) 20 %; MCH 32.8 pg (25.0-35.0); MCHC 34.1 g/dL (31.0-37.0); MCV 96.3 fL (80.0-100.0); Mean Platelet Volume 7.8; Monocytes # (A) 0.3 k/uL (0-1.0); Monocytes % (A) 3 %; Neutrophils # (A) 8.7 k/uL (1.3-7.7); Neutrophils % (A) 75 %; Platelet Count 267 k/uL (150-450); RBC 3.74 m/uL (3.80-5.40); RDW 12.2 % (11.5-15.5); WBC 11.6 k/uL (3.8-10.6)
[2022-04-13 08:58] LABS: HGB 12.3 gm/dL (11.4-16.0)
[2022-04-13] MEDS ORDERED: ACETAMINOPHEN TAB 325 MG TAB PO PRN (15:20)
== END 2022-04-13 10:16 | disposition home or self-care (01) ==
LOC: OR 09:38 → 4FBP 15:15 → OR 04-13 10:16
PROVIDERS: ATTEND Obstetrics & Gynecology
DX: N83.202 Unspecified ovarian cyst, left side (principal); N83.201 Unspecified ovarian cyst, right side; N83.8 Other noninflammatory disorders of ovary, fallopian tube and broad ligament; N70.11 Chronic salpingitis; N73.6 Female pelvic peritoneal adhesions (postinfective); N99.85 Post endometrial ablation syndrome; E11.9 Type 2 diabetes mellitus without complications; E78.5 Hyperlipidemia, unspecified; F17.200 Nicotine dependence, unspecified, uncomplicated; Z98.890 Other specified postprocedural states; Z80.52 Family history of malignant neoplasm of bladder; Z87.59 Personal history of other complications of pregnancy, childbirth and the puerperium; Z80.7 Family history of other malignant neoplasms of lymphoid, hematopoietic and related tissues; Z98.51 Tubal ligation status; Z86.59 Personal history of other mental and behavioral disorders; Z87.19 Personal history of other diseases of the digestive system; Z79.1 Long term (current) use of non-steroidal anti-inflammatories (NSAID)
CPT/HCPCS: 58571; 64999; 81025; 86900; 86901; 85025; 86850; 88307; J2250; J0330; J1100; J2710; J0690; J2405; J2274; J3010; J0131; J2370; J2704; J2001

== ENCOUNTER → 2022-05-18 | Outpatient (CLI) | payer BC ==
--- NOTE | 2022-05-19 08:49 | MM ---
Reason for Exam: Screening (asymptomatic). Last mammogram was performed 2 year(s) and 11 month(s) ago. Patient History: Menarche at age 13. First Full-Term at age 23. Hysterectomy at age 41. Paternal grandmother had breast cancer, age 60. Risk Values: Elida 5 year model risk: 0.5%. NCI Lifetime model risk: 9.0%. Prior Study Comparison: 07/01/2019 Bilateral Screening Mammogram, [facility]. Tissue Density: The breast tissue is heterogeneously dense. This may lower the sensitivity of mammography. Findings: Analyzed By CAD. There is no suspicious group of microcalcifications or new suspicious mass in either breast. Overall Assessment: Negative, BI-RAD 1 Management: Screening Mammogram of both breasts in 1 year. A clinical breast exam by your physician is recommended on an annual basis and results should be correlated with mammographic findings. Electronically signed and approved by: Kyle Segura M.D. Radiologis
== END | disposition home or self-care (01) ==
LOC: RADMAMWWP 07:13
PROVIDERS: ATTEND Obstetrics & Gynecology
DX: Z12.31 Encounter for screening mammogram for malignant neoplasm of breast (principal); Z80.3 Family history of malignant neoplasm of breast
CPT/HCPCS: 77067

== ENCOUNTER → 2024-08-29 | Outpatient (CLI) | payer BC ==
--- NOTE | 2024-08-29 15:12 | MM ---
Reason for Exam: Screening (asymptomatic). Last mammogram was performed 2 year(s) and 3 month(s) ago. Patient History: Menarche at age 13. First Full-Term at age 23. Left ovary removed at age 41. Hysterectomy at age 41. Patient has history of breast feeding. Paternal grandmother had breast cancer, age 60. Risk Values: Elida 5 year model risk: 0.6%. NCI Lifetime model risk: 8.9%. Prior Study Comparison: 07/01/2019 Bilateral Screening Mammogram, [facility]. 05/18/2022 Bilateral MG screening mammo w CAD, [facility]. Tissue Density: There are scattered areas of fibroglandular density. Findings: Analyzed By CAD. There is better visualized 9 mm circumscribed round mass in the central left breast. Overall Assessment: Incomplete: need additional imaging evaluation, BI-RAD 0 Management: Diagnostic Breast Ultrasound of the left breast. Targeted ultrasound left breast. Patient should continue monthly self-breast exams. A clinical breast exam by your physician is recommended on an annual basis. This exam should not preclude additional follow-up of suspicious palpable abnormalities. Note on Elida scores and lifetime risk: 1. A Elida score greater than 3% is considered moderate risk. If this is the case, consider specialist referral to assess eligibility for a risk reducing agent. 2. If overall lifetime risk for the development of breast cancer is 20% or higher, the patient may qualify for future screening with alternating mammogram and breast MRI. [facility], , 08/29/2024 3:09 PM. Electronically signed and approved by: Bruno Vasquez M.D.
== END | disposition home or self-care (01) ==
LOC: RADMAMWWP 14:24
PROVIDERS: ATTEND Family Medicine
DX: Z12.31 Encounter for screening mammogram for malignant neoplasm of breast (principal); R92.323 Mammographic fibroglandular density, bilateral breasts; Z80.3 Family history of malignant neoplasm of breast
CPT/HCPCS: 77063; 77067

== ENCOUNTER → 2024-09-09 | Outpatient (CLI) | payer BC ==
--- NOTE | 2024-09-09 08:04 | USB ---
Reason for Exam: Additional evaluation requested from abnormal screening. Patient History: Menarche at age 13. First Full-Term at age 23. Left ovary removed at age 41. Hysterectomy at age 41. Patient has history of breast feeding. Paternal grandmother had breast cancer, age 60. Risk Values: Elida 5 year model risk: 0.6%. NCI Lifetime model risk: 8.9%. Technique: Method: Targeted. Prior Study Comparison: 07/01/2019 Bilateral Screening Mammogram, [facility]. 05/18/2022 Bilateral MG screening mammo w CAD, [facility]. 08/29/2024 Bilateral MG 3D screening mammo w/cad, [facility]. Findings: The upper section of the breast of the left breast, the axilla of the left breast and the retroareolar of the left breast were scanned. No solid or cystic masses are identified. Six-month follow-up mammography left breast advised.. Overall Assessment: Probably benign, BI-RAD 3 Management: Diagnostic Mammogram of the left breast in 6 months. A clinical breast exam by your physician is recommended on an annual basis and results should be correlated with mammographic findings. This exam should not preclude additional follow-up of suspicious palpable abnormalities. Results were given to the patient verbally at the time of exam. [facility], , 09/09/2024 8:00 AM. Electronically signed and approved by: Kyle Segura M.D. Radiologis
== END | disposition home or self-care (01) ==
LOC: RADUSWWP 07:28
PROVIDERS: ATTEND Family Medicine
DX: R92.8 Other abnormal and inconclusive findings on diagnostic imaging of breast (principal); Z80.3 Family history of malignant neoplasm of breast